=== PATIENT | female | born 1980 ===

== ENCOUNTER 2020-05-08 11:47 | Outpatient (CLI) | payer OTHER, SELFPAY ==
[2020-05-08 13:06] LABS: Basophils Percent Auto 0.4 % (0.2-1.2); Eosinophils Absolute Auto 0.2 K/mm3 (0-0.3); Hematocrit 41.8 % (37.0-47.0); Hemoglobin 13.8 g/dL (12.0-15.0); Immature Granulocyte Absolute 0.02 K/mm3 (0.00-0.031); Immature Granulocyte Percent A 0.3 % (0-0.5); Lymphocytes Absolute Auto 2.21 K/mm3 (0.9-3.2); Lymphocytes Percent Auto 29.2 % (18.3-44.2); Mean Corpuscular Hemoglobin 30.2 pg (26-34); Mean Corpuscular Volume 91.5 fl (80-100); Mean Platelet Volume 10.5 fl (7.4-10.4); Monocytes Absolute Auto 0.6 K/mm3 (0.1-0.6); Monocytes Percent Auto 7.9 % (2.6-8.5); Neutrophils Absolute Auto 4.5 K/mm3 (1.3-6.7); Neutrophils Percent Auto 59.2 % (45.5-73.1); Platelet Count Result 285 k/mm3 (150-375); Red Blood Count 4.57 M/mm3 (4.2-5.4); Red Cell Distribution Width 12.7 % (11.5-14.5); White Blood Count 7.6 K/mm3 (4.5-10.0)
[2020-05-08 13:18] LABS: Alanine Aminotransferase 23 U/L (4-35); Albumin Level 3.9 g/dL (3.5-5.1); Alkaline Phosphatase 40 U/L (38-126); Anion Gap 6 mmol/L (8-16); Aspartate Amino Transferase 24 U/L (14-36); Bilirubin,Total 0.4 mg/dL (0.2-1.3); Blood Urea Nitrogen 15 mg/dL (7-17); Calcium 8.7 mg/dL (8.4-10.2); Carbon Dioxide 28 mmol/L (22-30); Chloride 104 mmol/L (98-107); Estimated Glomerular Filt Rate > 60; Glucose 110 mg/dL (65-105); INR 0.9; Partial Thromboplastin Time 24.9 SECONDS (22.3-36.8); Potassium 3.8 mmol/L (3.4-5.0); Prothrombin Time 12.6 Seconds (11.1-14.7); Sodium 138 mmol/L (137-145)
== END 2020-05-08 11:48 | disposition home or self-care (01) ==
LOC: ANHSURGERY 11:52
PROVIDERS: PCP Physician Assistant; Visit Provider Urology
DX: N81.2 Incomplete uterovaginal prolapse (principal); Z51.81 Encounter for therapeutic drug level monitoring; Z79.899 Other long term (current) drug therapy
CPT/HCPCS: 36415; 80053; 85025; 85610; 85730; 86850; 86900; 86901; 87086

== ENCOUNTER 2020-05-12 00:18 | Outpatient (CLI) | payer OTHER, SELFPAY ==
[2020-05-12 19:17] LABS: SARS-CoV-2 RNA PCR Negative
== END 2020-05-12 00:19 | disposition home or self-care (01) ==
LOC: ANHCOVIDDT 00:19
PROVIDERS: PCP Physician Assistant; Visit Provider Urology
DX: Z01.812 Encounter for preprocedural laboratory examination (principal); Z20.822 Contact with and (suspected) exposure to COVID-19
CPT/HCPCS: C9803; U0003; U0005

== ENCOUNTER 2020-05-15 01:04 | Day surgery (SDC) | payer OTHER, SELFPAY ==
[2020-05-08 12:35] VITALS: BP 125/80; PULSE 82; RESP 16; TEMP 37.4; O2SAT 99; BMI 42.5
--- NOTE | 2020-05-13 08:21 | PM.IMHP ---
H&P: HPI History of Present Illness Date/Time: 05/13/20 08:21 Chief Complaint: POP/FABIÁN Narrative: Shwetha Quinones is a 40 year old female POP and FABIÁN Review of Systems Review of Systems: All systems reviewed & are unremarkable except as noted in HPI and below PMFSH Past Medical History Medical History Anxiety History of vaginal delivery x 2 Hypothyroidism Prolapsed uterus Family History Family History Father Diabetes mellitus Mother Diabetes mellitus Grandparent Diabetes mellitus Hearing loss Social History Social History Smoking status: Never smoker Alcohol intake: current Substance use: never Spiritual care concerns: No Meds Home Medications and Allergies Home Medications Medication Instructions Recorded Confirmed Type levothyroxine 100 mcg tablet 100 mcg PO DAILY 02/07/20 05/08/20 History norethindrone 1 mg-ethinyl 1 tablet PO DAILY 02/07/20 05/08/20 History estradiol 20 mcg (21)-iron 75 mg (7) tablet paroxetine HCl 10 mg tablet 10 mg PO QAM 02/07/20 05/08/20 History Allergies Allergy/AdvReac Type Severity Reaction Status Date / Time adhesive tape Allergy Blister Verified 05/08/20 11:59 Exam Const: General: cooperative, healthy appearing and comfortable HENMT: Head: normal to inspection Eyes: General: appearance normal, both eyes and all related structures Resp: Effort & Inspection: normal respiratory effort and able to speak in complete sentences : External Female Exam: normal appearance of the urethra Bimanual Exam- Adnexa, other: rectocele (+2) and vaginal apex descent (-3) Skin: General skin exam: normal color Neuro: General: gait normal Assessment and Plan Assessment and plan (1) Uterine prolapse: Code(s): N81.4 - Uterovaginal prolapse, unspecified Status: Acute Assessment and Plan: uterosacral vault suspension. Possible vaginal prolapase repair if needed (2) FABIÁN (stress urinary incontinence, female): Code(s): N39.3 - Stress incontinence (female) (male) Status: Acute Assessment and Plan: urethral sling
[2020-05-15] VITALS (16 sets, daily range): BP systolic 123–151; BP diastolic 61–90; PULSE 81–117; RESP 12–20; TEMP 36.3–37.2; O2SAT 94–100
--- NOTE | 2020-05-15 07:22 | WPDHPUPDATE1 ---
History and Physical Update Update Date/Time: 05/15/20 07:22 History and Physical has been reviewed, including an updated exam of the patient. There are NO changes in the patient's condition. Risks, benefits, and alternatives have been discussed and questions answered. Patient agrees to proceed with procedure.
--- NOTE | 2020-05-15 08:46 | PM.IMHP ---
H&P: HPI History of Present Illness Date/Time: 05/15/20 08:46 Chief Complaint: Feeling something coming from vagina. Narrative: Shwetha Quinones is a 40 year old female with uterine prolapse and stress urinary incontinence for years. She has tried pessary and it did not work. She did have spotting in the past intermittent. She had a normal endometrial biopsy. She has been offered hysterectomy as definitive treatment for prolapse which she agrees to. Discuss benefit of removing fallopian tubes at time of surgery. She has seen Dr. Garcia for urinary symptoms and possible uteral sacral plication. She will have combined procedure with Dr. Garcia. Review of Systems Review of Systems: All systems reviewed & are unremarkable except as noted in HPI and below Cardiovascular: Cardiovascular: Reports no additional cardiovascular complaints, Denies chest pain and Denies dyspnea Respiratory: Respiratory: Reports no additional respiratory complaints and Denies dyspnea Gastrointestinal: Gastrointestinal: Reports abdominal pain, Denies change in bowel habits, Denies diarrhea, Denies nausea and Denies vomiting Genitourinary: Genitourinary: Reports pelvic pain Musculoskeletal: Musculoskeletal: Reports back pain Integumentary/Breasts: Skin/Breast: Reports system reviewed and no additional complaints, except as docu Neurologic: Reports system reviewed and no additional complaints, except as documented PMFSH Past Medical History Medical History Anxiety History of vaginal delivery x 2 Hypothyroidism Prolapsed uterus Family History Family History Father Diabetes mellitus Mother Diabetes mellitus Grandparent Diabetes mellitus Hearing loss Social History Social History Smoking status: Never smoker Alcohol intake: current Substance use: never Living arrangements: with family Spiritual care concerns: No Meds Home Medications and Allergies Home Medications Medication Instructions Recorded Confirmed Type levothyroxine 100 mcg tablet 100 mcg PO DAILY 02/07/20 05/08/20 History norethindrone 1 mg-ethinyl 1 tablet PO DAILY 02/07/20 05/08/20 History estradiol 20 mcg (21)-iron 75 mg (7) tablet paroxetine HCl 10 mg tablet 10 mg PO QAM 02/07/20 05/08/20 History Allergies Allergy/AdvReac Type Severity Reaction Status Date / Time adhesive tape Allergy Blister Verified 05/15/20 09:47 Exam Const: Orientation/consciousness: oriented to person and oriented to place HENMT: Head: normal to inspection Eyes: General: appearance normal, both eyes and all related structures Resp: Effort & Inspection: normal respiratory effort Auscultation: clear to auscultation bilaterally Cardio: Rate: regular rate Rhythm: regular rhythm GI: Inspection: normal to inspection GI Palp: No Rebound tenderness present : External Female Exam: normal external appearance Speculum Exam - Vagina: normal appearance of the vagina Speculum Exam - Cervix: Other cervical findings present (cervix descends to lower half vagina) Bimanual exam- vagina & uterus: normal bimanual exam Bimanual Exam- Adnexa, other: normal adnexae, rectocele and cystocele Neuro: General: oriented to person and oriented to place Cognition (Neuro): normal cognition Extrem: General: normal to inspection Psych: Appearance: grossly normal and well kempt Assessment and Plan Assessment and plan (1) Uterine prolapse: Code(s): N81.4 - Uterovaginal prolapse, unspecified Status: Acute Assessment and Plan: Incomplete. She desires definitive treatment with hysterectomy. Counseled on risk benefit of robotic hysterectomy and bilateral salpingectomy. Possible removal of one or both ovaries if deemed necessary. She agrees to robotic assisted vaginal hysterectomy,
[2020-05-15] MEDS: ACETAMINOPHEN 500 MG TABLET 1000 MG PO (09:32)
[2020-05-15] MEDS: LACTATED RINGERS 1,000 ML 30 ML IV CONT ×3 (09:45→16:53)
[2020-05-15] MEDS: KETOROLAC 15 MG/ML VIAL (*BKC) IV PUSH ×2 (09:46→20:37)
--- NOTE | 2020-05-15 10:59 | WPDANESEPPF ---
Anes - Initial Pre Proc Eval Procedure: Operation Date: 05/15/20 11:30 Proposed Procedures p Robotic Uterosacral Vault Suspension - Omar Garcia MD s Urethral Sling - Omar Garcia MD s Robotic Assisted Laparoscopic Hysterectomy, Bilateral Salpingectomy - Duran Ling MD Date/Time: 05/15/20 10:59 Surgeon: Omar Garcia MD Pre Op Diagnosis: Incomplete Uro/Vaginal Prolapse,Rectocele, Patient Data Age: 40 Gender: F Height: 5 ft 9.5 in Weight: 132.2 kg Last Vital Signs Temp 36.3 C L 05/15/20 09:07 Pulse 81 05/15/20 09:07 Resp 14 05/15/20 09:07 BP 147/90 H 05/15/20 09:07 Pulse Ox 100 05/15/20 09:07 Allergies Allergy/AdvReac Type Severity Reaction Status Date / Time adhesive tape Allergy Blister Verified 05/15/20 09:47 Home Medications Medication Instructions Recorded Confirmed Type levothyroxine 100 mcg tablet 100 mcg PO DAILY 02/07/20 05/15/20 History norethindrone 1 mg-ethinyl 1 tablet PO DAILY 02/07/20 05/15/20 History estradiol 20 mcg (21)-iron 75 mg (7) tablet paroxetine HCl 10 mg tablet 10 mg PO QAM 02/07/20 05/15/20 History Patient hx anesthesia problems: other (motion sickness) Family hx anesthesia problems: none PMFSH Past Medical History Medical History Anxiety History of vaginal delivery x 2 Hypothyroidism Prolapsed uterus Family History Family History Father Diabetes mellitus Mother Diabetes mellitus Grandparent Diabetes mellitus Hearing loss Social History Social History Smoking status: Never smoker Alcohol intake: current Substance use: never Living arrangements: with family Spiritual care concerns: No Anes - Eval Final PreProcedure Day of Procedure 05/15/20 10:59 Patient weight: morbidly obese Heart: regular rate and rhythm Lungs: clear to auscultation Airway: Mallampati scale class II Neurological: alert and oriented Last oral intake: >/= 8 hours ASA classification: III Emergent: no Anesthetic plan: proceed Anesthesia type and monitoring: general ETT and standard monitoring Informed Consent: The patient's anesthetic plan and its attendant risks and benefits were discussed with the patient/family/POA. Questions were solicited and answers provided to the satisfaction of the patient/family/POA.
--- NOTE | 2020-05-15 11:03 | SUR.PREOP ---
1100 pt taken to bathroom to void, pt informed delay in procedure.
--- NOTE | 2020-05-15 11:42 | WPDHPUPDATE1 ---
History and Physical Update Update Date/Time: 05/15/20 11:42 History and Physical has been reviewed, including an updated exam of the patient. There are NO changes in the patient's condition. Risks, benefits, and alternatives have been discussed and questions answered. Patient agrees to proceed with procedure.
--- NOTE | 2020-05-15 11:43 | WPDHPUPDATE1 ---
History and Physical Update Update Date/Time: 05/15/20 11:43 History and Physical has been reviewed, including an updated exam of the patient. There are NO changes in the patient's condition. Risks, benefits, and alternatives have been discussed and questions answered. Patient agrees to proceed with procedure.
[2020-05-15] MEDS: ceFAZolin 3 GM/D5W 100 ML 100 ML IVPB (12:19)
[2020-05-15] MEDS: metroNIDAZOLE 500 MG/ISO 100ML 500 MG/100 ML BAG 100 MG IVPB ×2 (12:34→20:37)
[2020-05-15] MEDS: BUPIVACAINE/EPINEPHRINE 0.25% 50 ML VIAL 30 ML INFILTRATE (12:47)
--- NOTE | 2020-05-15 13:23 | SUR.OPER ---
1247 DR LONGORIA PORT PLACEMENT.
--- NOTE | 2020-05-15 14:16 | SUR.OPER ---
uteus cervix bilateral tubes 169gm
--- NOTE | 2020-05-15 15:28 | PM.PROC ---
Procedure Note - Detailed Date of procedure: 05/15/20 Pre-op diagnosis: Incomplete Uro/Vaginal Prolapse,Rectocele, Post-op diagnosis: same Procedure performed: Robotic assisted laparoscopic total hysterectomy and bilateral salpingectomy. Description of procedure: After informed consent was obtained patient was taken to the operating room and general endotracheal anesthesia was administered. She was placed in low lithotomy position and prepped and draped in sterile fashion. Prior to being prepped and draped and exam under anesthesia was performed and no masses were palpated uterus palpated to be normal size. Attention was then turned to the vagina. A Silveira catheter had been placed in bladder during prep. Weighted speculum was placed in the vagina. The anterior vaginal wall was retracted with a retractor. A single-tooth tenaculum was placed on the anterior lip of the cervix the uterus was sounded to 9 cm the cervix was dilated with adilator. The uterine manipulator was inserted and the bulb inflated a size 8 uterine manipulator was used. A 3.5 cm colp cup was secured in the vagina. Prior to securing the cup the single-tooth tenaculum was removed from the cervix. Attention was then turned to the abdomen. With sterile gloves a horizontal incision was made 2cm above the umbilicus with the scalpel. A Veress needle was inserted into the abdomen confirmation into the abdomen was obtained with normal free flow of fluid through the veress needle and normal peritoneal pressures. A pneumoperitoneum of 15 mm per mercury was obtained and a size 8 trocar was inserted under laparoscopic visualization. Attention was then turned to the left side of the abdomen and a robotic port was inserted under laparoscopic visualization. Attention was then turned to the right side parallel to this and a robotic port was inserted under laparoscopic visualization. Superior and medial to this a diver assistant port was inserted under laparoscopic visualization. The patient was placed in Trendelenburg to allow the intestinal organs out of the pelvis. The robotic arms were then attached to the ports. Attention was then turned to the surgery console. Attention was turned to the right round ligament which was cauterized and cut the anterior leaf of the broad ligament was further dissected anteriorly to the vesicouterine peritoneum. The bladder was dissected from the lower uterine segment anteriorly attention was then attention was turned to the fallopian tube which was cauterized from the upper broad ligament and distal ovary. Attention was then turned to the ovarian ligament which was then cauterized and cut. The broad ligament was further cauterized and ascending uterine vessels were cauterized. The uterine arteries were skeletonized. Attention was then turned to the left round ligament which was cauterized and incised. The anterior leaf of the broad ligament was further incised to the vesicouterine peritoneum. The bladder was further dissected from the rest of the lower uterine segment. The left fallopian tube was cauterized from the distal ovary and the broad ligament the left ovarian ligament was then cauterized and incised the ascending uterine vessels were cauterized. The uterine vessels on the left side were skeletonized. The uterine arteries on the left side were cauterized and the cardinal ligament was cauterized. This was done after the bladder was fully dissected below the palpable colp cup. Attention was then turned to the right side and the uterine arteries were skeletonized and uterine arteries were cauterized after the bladder was dissected below the palpable colp cup. The right cardinal ligaments were then cauterized and anterior colpotomy incision was made and the cervix was cauterized from the vagina. The cervix with the uterus and right and left fallopian tubes were then removed through the vagina. The vaginal cuff was closed in a running fashion with a 0 V lock suture continuous. Precious
[2020-05-15] MEDS: BUPIVACAINE/EPINEPHRINE 0.25% 50 ML VIAL 20 ML INFILTRATE (15:43)
--- NOTE | 2020-05-15 16:19 | P.OP_ITS ---
Procedure Note - Detailed Date of procedure: 05/15/20 Pre-op diagnosis: Incomplete Uro/Vaginal Prolapse,Rectocele, Incomplete uterovaginal prolapse, rectocele, female perineal laxity, stress incontinence Post-op diagnosis: same Procedure performed: Robotic uterosacral vault suspension Urethral sling Rectocele repair Perineal repair Description of procedure: She was correctly identified. Informed consent obtained. She is brought to the operating room. She was prepped and draped in sterile fashion. Time-out performed. All pressure points were padded. Dr. bruce placed a OUMAR device. I anesthetized the skin 3 fingerbreadths above the umbilicus. I dissected down to find the fascia. I grasped the fascia with Sumi clamps. I entered the fascia sharply in a Cordero type technique. I placed Vicryl sutures for later fascial closure. I placed a midline trocar. Under direct vision 2 additional trocars were placed in the right and left upper quadrant. She was placed in Trendelenburg. Dr. bruce performed her portion of the procedure. The uterus extracted and the cuff was closed. I then set the console. I elevated the vaginal apex. There was some movement to the apex but it the apex was overall decently supported. I located both ureters. I located the uterosacral ligaments. I plicated the uterus sacral ligaments with 2 sutures of [place] on both sides. This lifted the cervix in support of the apex. The instruments removed the robot was undocked. Fascial sutures were closed. Skin was closed with Monocryl and surgical glue. On vaginal exam she had very good apical support. She continue have a large rectocele. She continued to have hyper mobile urethra. I anesthetized inner thigh incisions. I anesthetized the anterior vaginal wall over the mid urethra. I made a midline incision. I dissected out laterally taking great care not to injure the refilled vaginal wall. I passed the helical trocars. First the left and then on the right. I did this from the thigh incision towards the vaginal incision. Sling was connected to the trocars and brought out the thigh incision. I tensioned the sling appropriately. I cut and removed the plastic sheaths. I then closed the incision with 2 Vicryl. On cystoscopy she had a normal- appearing bladder. There is no surgical artifact in the bladder or urethra. Both ureters were seen to excrete clear yellow urine. Silveira catheter was replaced. I anesthetized the posterior vaginal wall. I grasped the rectocele without clamps. I made a midline vaginal incision. I dissected laterally and apically. I would this bluntly. She had a large rectocele. I then plicated the rectocele 0 Vicryl sutures. I started the apex and used distally. I trimmed excess vaginal mucosa. I closed the vaginal mucosa with a running 2 0 Vicryl suture. There is excellent support of the rectocele. She continued to have perineal laxity. I anesthetized and removed a brittni-shaped area of skin in the perineum. I performed a perineorrhaphy. I used 0 Vicryl interrupted suture. We then closed the mucosa with 2 0 Vicryl suture. There is excellent perineal support. I was happy with the overall prolapse repair. She was then awakened and transferred to PACU in stable condition Anesthesia: KAVYA Surgeon: Omar Garcia MD Estimated blood loss (mL): 100 Drains: Yes (Silveira) Packing: Yes (Vaginal packing) Pathology: none sent Complications: No immediate complications Condition: stable Disposition: PACU
[2020-05-15] MEDS: SCOPOLAMINE 1.5 MG PATCH TRANSDERM (16:25)
[2020-05-15] MEDS: ONDANSETRON INJ 4 MG/2 ML VIAL IV PUSH (16:28)
[2020-05-15] MEDS: fentaNYL CITRATE INJ (*CRX) 100 MCG/2 ML VIAL 25 MCG IV PUSH ×2 (16:31→17:12)
[2020-05-15] MEDS: KCL 20 MEQ/D5/0.45% SOD CHL 1,000 ML 100 ML IV CONT (17:44)
[2020-05-16] VITALS: BP 134/71; PULSE 89; RESP 18; TEMP 37.1; O2SAT 98
[2020-05-16] MEDS: HYDROcodone/acetaminophen (*CRX) 5-325 MG TABLET 1 TAB PO ×3 (03:20→13:55)
[2020-05-16 03:30] VITALS: BP 116/73; PULSE 85; RESP 18; TEMP 37.1; O2SAT 99
[2020-05-16] MEDS: metroNIDAZOLE 500 MG/ISO 100ML 500 MG/100 ML BAG 100 MG IVPB ×2 (04:29→12:36)
[2020-05-16] MEDS: KETOROLAC 15 MG/ML VIAL (*BKC) IV PUSH (05:55)
[2020-05-16 07:40] VITALS: BP 122/74; PULSE 87; RESP 18; TEMP 37.4; O2SAT 99
--- NOTE | 2020-05-16 07:40 | WPDANESPN ---
Anes - Prog Note Post-Op Date/Time: 05/16/20 07:40 Cardiovascular status: normal Respiratory status: normal Airway patency: baseline Mental status: baseline Post-Op hydration status: normal Vital Signs: Last Vital Signs Temp 37.1 C 05/16/20 03:30 Pulse 85 05/16/20 03:30 Resp 18 05/16/20 03:30 BP 116/73 05/16/20 03:30 Pulse Ox 99 05/16/20 03:30 Pain Score (VAS): 5 I/O: Intake & Output 05/15/20 05/15/20 05/16/20 15:59 23:59 07:59 Intake Total 200 850 400 Output Total 300 140 Balance -100 710 400 Post-procedural complaints: none Patient Feedback: Patient satisfied with anesthetic care.
[2020-05-16] MEDS: ENOXAPARIN 30 MG/0.3 ML SYRINGE SUB-Q (10:17)
[2020-05-16] MEDS: DOCUSATE SODIUM 100 MG CAPSULE PO (10:18)
[2020-05-16] MEDS: LEVOTHYROXINE SODIUM 100 MCG TABLET PO (10:19)
[2020-05-16] MEDS: PARoxetine 10 MG TABLET PO (10:19)
--- NOTE | 2020-05-16 12:35 | PM.GYNPNOP ---
[employer] - A/P Assessment and plan (1) Encounter for postoperative care: Code(s): Z48.89 - Encounter for other specified surgical aftercare Status: Acute Assessment and Plan: POD1 s/p Rhyserectomy with B salpingectomy and combined with Dr. Pastor uterosacral fixation, sling and rectocele repair. She is doing well. Routine post op care. Anticipate she will be able to go home today. Discussed discharge precautions. Postoperative Procedures: Procedures Operation Date: 05/15/20 11:30 Actual Procedures Side Surgeon p Robotic Uterosacral Vault Suspension Omar Garcia MD s Urethral Sling, Rectocele Repair Not Applicable Omar Garcia MD s Robotic Assisted Laparoscopic Hysterectomy, Bilateral Salpingectomy Not Applicable Duran Ling MD Time Spent With Patient Time: Total time spent is greater than 50% in coordination of care (as documented) at patient's floor/unit and/or counseling patient: Time with patient: less than 15 minutes [employer]- PN:Subj Post-Op Subjective Date/time seen: 05/16/20 0730 She has adequate pain control with medication. Has ambulated to bathroom She has right hip pain with bending. No lower leg pain. No chest pain or SOB. Discussed her surgery with her. No flatus. Tolerated liquids. Exam Const: General: cooperative and comfortable Eyes: General: appearance normal, both eyes and all related structures Resp: Effort & Inspection: normal respiratory effort Auscultation: clear to auscultation bilaterally Cardio: Rate: regular rate Rhythm: regular rhythm GI: Other: incisions intact no drainage or erythema, positive BS Extrem: General: normal to inspection Other: Nontender no erythema, neg Homans [employer] - PN: Obj Data Vital Signs Vital Signs: Vital Signs - 24 hr 05/15/20 16:13 05/15/20 16:25 05/15/20 16:40 Temperature 97.3 F L Pulse Rate 117 H 93 96 Respiratory Rate 12 12 16 Blood Pressure 151/82 H 138/62 134/71 Pulse Oximetry 97 99 99 05/15/20 16:55 05/15/20 17:10 05/15/20 17:23 Temperature Pulse Rate 101 H 97 88 Respiratory Rate 18 20 14 Blood Pressure 142/71 H 133/73 134/75 Pulse Oximetry 99 98 94 05/15/20 17:35 05/15/20 17:45 05/15/20 18:00 Temperature 97.4 F L 97.4 F L Pulse Rate 94 94 88 Respiratory Rate 18 18 Blood Pressure 128/73 128/73 130/73 Pulse Oximetry 100 100 100 05/15/20 18:15 05/15/20 18:30 05/15/20 19:00 Temperature Pulse Rate 86 93 87 Respiratory Rate Blood Pressure 127/76 133/74 129/79 Pulse Oximetry 99 100 100 05/15/20 19:30 05/15/20 20:00 05/15/20 21:00 Temperature 98.9 F Pulse Rate 92 86 84 Respiratory Rate 18 Blood Pressure 123/61 124/70 127/76 Pulse Oximetry 100 100 99 05/16/20 00:00 05/16/20 03:30 05/16/20 07:40 Temperature 98.8 F 98.8 F 99.4 F Pulse Rate 89 85 87 Respiratory Rate 18 18 18 Blood Pressure 134/71 116/73 122/74 Pulse Oximetry 98 99 99 Intake/Output Intake/Output: Intake & Output 05/13/20 05/14/20 05/15/20 05/16/20 23:59 23:59 23:59 23:59 Intake Total 1050 690 Output Total 440 200 Balance 610 490 Meds/Results Medications: Active Medications Generic Name Dose Route Start Last Admin Trade Name Freq PRN Reason Stop Dose Admin Acetaminophen 650 mg 05/15/20 17:25 Acetaminophen 325 Mg Tablet PO Q4H PRN Mild Pain (1-3) or Fever Hydrocodone Bitart/Acetaminophen 1 tab 05/15/20 17:25 05/16/20 10:19 Hydrocodone/Acetaminophen (*Crx) 5-325 Mg Tablet PO 1 tab Q4H PRN Administration Pain Rated 4-5 Cephalexin HCl 500 mg 05/16/20 17:00 Cephalexin 500 Mg Capsule PO QID [place] Diphenhydramine HCl 25 mg 05/15/20 17:25 Diphenhydramine Hcl Inj 50 Mg/Ml Vial IV PUSH Q6H PRN Itching Docusate Sodium 100 mg 05/16/20 09:00 05/16/20 10:18 Docusate Sodium 100 Mg Capsule PO 100 mg DAILY [place] Administration Enoxaparin Sodium 30 mg 05/16/20 09:00 05/16/20 10:17 Enoxaparin 30 Mg/0.3 Ml Syringe SUB-Q
[2020-05-16] MEDS: SODIUM CHLORIDE 0.9% IV 100 ML 10 ML (13:47)
== END 2020-05-16 14:56 | disposition home or self-care (01) ==
LOC: ANHSURGERY 11:48 → ANHOB2 17:27
PROVIDERS: Obstetrics & Gynecology; PCP Physician Assistant; Visit Provider Urology
PROC: (CPT 57425; principal; 2020-05-15 11:30)
PROC: (CPT 57425; 2020-05-15 11:30)
PROC: 0UT94ZZ Resection of Uterus, Percutaneous Endoscopic Approach (ICD-10-PCS; CPT 57425; 2020-05-15 11:30)
DX: N81.2 Incomplete uterovaginal prolapse (principal); N39.3 Stress incontinence (female) (male); N80.0 Endometriosis of uterus; E03.9 Hypothyroidism, unspecified; F41.9 Anxiety disorder, unspecified
CPT/HCPCS: 57425; 57288; 57250; 58571; S2900 ×2; 88307; 99199; A9270; C1771; C9803; J0690; J1100; J1170; J1200; J1650; J1885; J2250; J2405; J2704; J2710; J3010; J3480; J7030; J7120; U0003; U0005